=== PATIENT | female | born 1965 | race Caucasian/White ===

== ENCOUNTER 2016-07-10 09:10 | Day surgery (SDC) | payer OTHER ==
[~2016-07-10] VITALS: Ht 154.9 cm; Wt 82.6 kg
[~2016-07-10 09:10] MED LIST: 0.9% Sodium Chloride 1,000 ML IV SCH; ATOR20TA PO; BACL10TA PO; GABA600T2 PO; LISI10TA PO; MELO-253 PO; OMEP40CA25 PO; PROC10TA PO; SERT20OR6 PO; Sodium Chloride LOK Flush 10 mL Syringe IV PRN; TOPI50TA88 PO; fentaNYL-PF 50 mCg/mL 2 mL Inj IVPUSH PRN
[2016-07-10 09:50] VITALS: BP 128/90; PULSE 79; RESP 16; O2SAT 97
[2016-07-10 10:44] VITALS: BP 119/64; PULSE 71; RESP 12; O2SAT 95
[2016-07-10 10:53] VITALS: BP 121/61; PULSE 69; RESP 14; O2SAT 92
--- NOTE | 2016-07-10 15:12 | ENDO ---
[address] [address] ENDOSCOPY PROCEDURE PATIENT: CALVIN GERONIMO : 1965 MR#: [id number] ADMIT: 07/10/2016 JOB ID: [id number] DATE: 07/10/2016 PROCEDURE: Esophagogastroduodenoscopy. INDICATION: Dysphagia. The patient's ASA classification is 2. Mallampati score is 2. MEDICATIONS: 1. Versed 4 mg. 2. Fentanyl 100 mcg. INSTRUMENT USED: GIF H 190. PROCEDURE DETAILS: After informed consent was obtained, the patient was brought into the GI suite, where she was placed on oxygen via nasal cannula and monitored with continuous pulse oximeter, telemetry and blood pressure monitoring. A time-out was performed. Then, she was placed in the left lateral decubitus position and medications were administered for sedation. A bite block was placed. The standard EGD scope was inserted through the bite block and advanced under direct visualization to the second portion of the duodenum without difficulty. FINDINGS: 1. Normal appearing duodenal bulb, first and second portion. Multiple random biopsies were obtained. 2. Normal appearing pylorus. 3. Normal appearing antrum and body of the stomach. 4. Retroflexed views in the gastric body revealed a normal-appearing cardia and fundus. and a hiatal hernia was appreciated. 5. Multiple random biopsies were obtained throughout the antrum and body of the stomach. 6. The diaphragmatic hiatus was at approximately 39 cm and the GE junction, which was regular, was at 36 cm. Just at the GE junction, there were a few punctate erosions suggestive of esophagitis. 7. The remainder of the esophagus appeared otherwise normal. Multiple biopsies were obtained in the mid esophagus. IMPRESSION: 1. Hiatal hernia. 2. Distal esophagitis. RECOMMENDATIONS: 1. Reflux precautions. 2. Consider increasing omeprazole to 40 mg b.i.d. from 40 mg daily. 3. Await biopsy results. 4. Proceed to colonoscopy. COMPLICATIONS: None. ESTIMATED BLOOD LOSS: Less than 5 mL. PROCEDURE PERFORMED: Colonoscopy. INDICATION: Loose stools. Please see above for ASA classification, Mallampati score and medications. INSTRUMENT USED: PCF H 180 AL. PREPARATION QUALITY: Was good. PROCEDURE DETAILS: After completion of the EGD examination, the patient was turned and then a digital rectal examination was performed, which was unremarkable. The colonoscope was then inserted into the rectum and advanced under direct visualization to the terminal ileum which was identified by the presence of the ileocecal valve and villous appearing mucosa of the terminal ileum. Once the terminal ileum was reached, the colonoscope was withdrawn back into the rectum as the mucosa and lumen were examined. In the rectum, retroflexion was performed. Following retroflexion, remaining air in the rectum was suctioned, and the procedure was completed. FINDINGS: 1. Normal appearing terminal ileum. 2. Normal-appearing colon mucosa from rectum to cecum. Multiple random biopsies were obtained throughout the colon. 3. In the descending colon, there were three diminutive polyps that were removed with cold biopsy forceps. IMPRESSION: Three colon polyps. Otherwise normal examination from rectum to terminal ileum. RECOMMENDATIONS: 1. Await biopsy results. 2. Followup in GI clinic. 3. Repeat colonoscopy pending polyp pathology results. COMPLICATIONS: None. ESTIMATED BLOOD LOSS: Less than 5 mL.
--- NOTE | 2016-07-11 11:15 | PATH ---
SURGICAL PATHOLOGY Attending Physician:Ari Marcial CASE STATUS: Signed Out PATIENT NAME: CALVIN GERONIMO PID: [id number] : 1965 DATE COLLECTED:07/10/2016 18:29 SPECIMEN: 1: Duodenum, Biopsy 2: Gastric, Biopsy 3: Esophagus, Biopsy 4: Colon, Biopsy 5: Colon, Biopsy CLINICAL HISTORY: 1). DUODENUM BIOPSY 2). GASTRIC BIOPSY 3). MID ESOPHAGEAL BIOPSY 4). RANDOM COLON BIOPSY 5). DESCENDING COLON POLYP FINAL DIAGNOSIS: 1.DUODENUM BIOPSY: FRAGMENTS OF NORMAL-APPEARING SMALL BOWEL MUCOSA. Normal delicate mucosal villi present. Negative for significant inflammation, dysplasia and malignancy. 2.GASTRIC BIOPSY: FRAGMENTS OF GASTRIC ANTRAL AND FUNDIC MUCOSA WITHOUT SIGNIFICANT INFLAMMATION. Negative for evidence of Helicobacter. Negative for intestinal metaplasia. Negative for dysplasia and malignancy. 3.MID ESOPHAGUS BIOPSY: MILD CHRONIC INFLAMMATION WITH REACTIVE SQUAMOUS EPITHELIAL CHANGES. Negative for significant atypia and malignancy. Eosinophils are not increased. 4.RANDOM COLON BIOPSIES: SINGLE SMALL FOCUS OF CHRONIC INFLAMMATION INCLUDING LYMPHOCYTES AND HISTIOCYTES BUT WITHOUT WELL-DEVELOPED GRANULOMAS. THE REMAINING COLON FRAGMENTS APPEAR NORMAL WITH NO SIGNIFICANT ARCHITECTURAL DISTORTION, ADDITIONAL INFLAMMATION, DYSPLASIA OR MALIGNANCY. 5.DESCENDING COLON POLYP: CHANGES CONSISTENT WITH HYPERPLASTIC POLYP. ICD10 CODE K20.9 NOTE: As part of a routine corporate quality engineer, Dr. Kaleb Adams has also reviewed part 4 of this case and agrees with the diagnosis. GROSS DESCRIPTION: The specimen is received in five formalin filled containers labeled with the patient's name. 1). The specimen is sublabeled "duodenum" and consists of 5 portions of tissue which aggregate to 0.4 x 0.4 x 0.3 CM. The specimen is entirely submitted in cassette 1A. 2). The specimen is sublabeled "gastric" and consists of 3 tiny portions of tissue which aggregate to 0.3 x 0.3 x 0.2 CM. The specimen is entirely submitted in cassette 2A. 3). The specimen is sublabeled "mid esophagus" and consists of 3 portions of tissue which aggregate to 0.3 x 0.3 x 0.2 CM. The specimen is entirely submitted in cassette 3A. 4). The specimen is sublabeled "random colon" and consists of multiple portions of tissue which aggregate to 0.6 x 0.6 x 0.3 CM. The specimen is entirely submitted in cassette 4A. 5). The specimen is sublabeled "descending colon polyp" and consists of 3 portions of tissue which aggregate to 0.3 x 0.3 x 0.2 CM. The specimen is entirely submitted in cassette 5A. 07/10/2016 DAC MICRO DESCRIPTION: See diagnosis. ICD-9 CODES: CPT CODES: 1: 19557 2: 07437 3: 41345 4: 03171 5: 23221 Electronically Signed Out Dylan Galvan MD [facility] [address], [place] [address] Technical component performed at [facility], [facility] [address], [place], [address]
== END 2016-07-10 23:59 | disposition home or self-care (01) ==
LOC: END 09:10
PROVIDERS: ATTEND Internal Medicine Gastroenterology
DX: K63.5 Polyp of colon (principal); R19.7 Diarrhea, unspecified; K20.9 Esophagitis, unspecified; K44.9 Diaphragmatic hernia without obstruction or gangrene; R13.10 Dysphagia, unspecified; I10 Essential (primary) hypertension; F17.210 Nicotine dependence, cigarettes, uncomplicated; Z79.899 Other long term (current) drug therapy
CPT/HCPCS: 43239; 45380; 88305; 99153; G0500; J2250; J3010; J7030